=== PATIENT | female | born 1955 | race Caucasian/White ===

== ENCOUNTER 2016-07-15 22:29 | Emergency (ER) | payer OTHER ==
[~2016-07-15] VITALS: Ht 149.9 cm; Wt 42.3 kg
[2016-07-15 22:33] VITALS: BP 141/61; RESP 15; O2SAT 100
--- NOTE | 2016-07-15 23:55 | ED.REPORT ---
HPI-General Illness Date of Service Jul 15, 2016 ED Provider: Dr. Jeffrey Engel MD A 61 year old female presents to the ED complaining of right-sided dental pain that began approx. 2 days ago. Associated symptoms include right ear discomfort , periodontal pain and jaw pain. Her symptoms have become increasingly worse since onset. She denies any recent fever. Patient does not currently have a dentist and denies any allergies. Nursing Notes Stated Complaint: DENTAL PAIN Chief Complaint: ENT & Mouth Nursing Notes Reviewed: Yes Allergies: Coded Allergies: No Known Allergies (Unverified , 07/15/16) Scheduled Amoxicillin (Amoxicillin) 500 Mg Tablet 500 MG PO TID Scheduled PRN Ibuprofen (Ibuprofen) 600 Mg Tablet 600 MG PO QID PRN PRN For Pain General Time Seen by MD: 23:55 Chief Complaint Other (Dental pain) Hx Obtained From: Patient Arrived By: Walk-in Sudden in Onset?: No Onset Occurred: 2 days ago Symptom Duration: Since onset Location: : Ear right: Mouth (Jaw) Quality: Painful Radiation: : Jaw Severity: Current: Moderate Severity: Maximum: Moderate Associated with: Reports: Joint pain (Jaw pain), Pain (Dental ), Denies: Fever Pertinent Negative: Pt denies other symptoms Recent Healthcare: No recent doctor visit, No recent hospitalization Past Medical History Past Medical History None reported. Past Surgical History None reported. Social History Other Social History: Local resident Ambulatory Status Independent Review of Systems periodontal pain Full Review of Systems Constitutional: Denies: Chills, Fever Ears / Nose / Throat: Reports: Earache right, Toothache Respiratory: Denies: Shortness of breath Cardiovascular: Denies: Chest pain GI: Denies: Abdominal pain, Nausea, Vomiting Musculoskeletal: Reports: Joint pain (Jaw pain ) Neurologic: Denies: Change LOC Complete sys rev & neg: except as marked. Physical Exam Vital Signs Vital Signs Date Time Temp Pulse Resp B/P Pulse Ox O2 Delivery O2 Flow Rate FiO2 07/15/16 22:33 36.0 68 15 141/61 100 Room Air Initial VS: Reviewed Neck: Supple, Non-tender, Full range of motion Extremities: Vascular intact, Neuro intact, No swelling, No tenderness Skin: Warm, Dry, No cyanosis Neurologic: Alert, Oriented, Nonfocal Psychiatric: Mood/affect normal, Behavior normal, Normal thought content General/Constitutional: Awake, Alert, No acute distress Head / Eyes: Atraumatic, Normocephalic, PERRL ENT: Atraumatic, Airway patent (No airway obstruction ), Mucous membranes moist , Pharynx NL (Symmertrical ) ENT: #13 tooth broken off with black peg erythema and swelling present in the lower left jaw Jaw tenderness No evidence of drainable abscess Respiratory / Chest: Atraumatic, No respiratory distress Abdomen: Atraumatic Re-Eval/Medical Decision Med Decision/Clinical Course 61-year-old with dental abscess on the left a tooth broken off at the gumline in poor condition, but no evidence of airway or medial oropharynx compromise. Discharged in stable condition with amoxicillin, ibuprofen, and instructed to follow up promptly with a dentist. Dental referral list given. Time of Eval: 00:30 Patient Status: Condition improved Re-Evaluation/Progress Note: Patient is rechecked. She is informed of her diagnosis. All questions are addressed. She understands and agrees with the treatment plan. Counseled Regarding: Diagnosis, Need for follow-up, When/why to return to ED Discharge & Departure Primary Impression: Dental abscess Disposition: Home Discharge Condition All VS Reviewed: Yes Condition: Stable Patient Instructions: Dental Abscess (ED) Additional Instructions: It is essential to get this tooth removed. Antibiotics will merely reduce the swelling and pain temporarily, but it will recur. Ibuprofen four times daily as needed for pain. Follow-up with dentist DIANNE. Follow-up also with your primary care doctor. Referrals: Annamarie Velez MD (PCP) [facility] Attestation Portions of this note were transcribed by Boaz Rodas. I, Dr. Engel personally performed the history, physical exam and medical decision-making; I reviewed and confirmed the accuracy of the information in the transcribed note. Signed by: Clara Dang, 07/16/16 0100. copies to: Annamarie Velez MD, Christopher W MD Jul 15, 2016 23:55 BOAZ RODAS Jul 16, 2016 00:12
[2016-07-16] MEDS ORDERED: AMOX500T2 PO (00:13)
[2016-07-16] MEDS ORDERED: IBUP-1827 PO (00:13)
== END 2016-07-16 00:38 | disposition home or self-care (01) ==
LOC: SED 22:29
DX: K04.7 Periapical abscess without sinus (principal)